=== PATIENT | male | born 1935 | race Caucasian/White ===

== ENCOUNTER 2019-01-28 21:31 | Inpatient (IN) | payer MEDICARE ==
[~2019-01-28] VITALS: Ht 175.3 cm; Wt 93.0 kg
--- NOTE | 2019-01-28 21:45 | NUR ---
Dr. Pedroza at bedside for MSE.
[2019-01-28] MEDS ORDERED: BENA20TA9 PO (21:57)
[2019-01-28] MEDS ORDERED: CLON0.1T PO (21:57)
[2019-01-28] MEDS ORDERED: METO50TA16 PO (21:57)
[2019-01-28] MEDS ORDERED: ATOR20TA PO (21:57)
[2019-01-28] MEDS ORDERED: IV NORMAL SALINE 500 ML BAG IV ONE (22:00)
[2019-01-28 22:04] LABS: BASOPHILS % (AUTO) 0.4 % (0.0-2.0); EOSINOPHILS % (AUTO) 0.3 % (0.0-7.0); HEMOGLOBIN 15.1 g/dL (12.5-16.3); LYMPHOCYTES # (AUTO) 1.7 K/uL (20.0-40.0); LYMPHOCYTES % (AUTO) 12.2 % (20.5-51.5); MEAN CORPUSCULAR HEMOGLOBIN 30.7 uug (23.8-33.4); MEAN CORPUSCULAR HGB CONC 34 g/dL (32.5-36.3); MEAN CORPUSCULAR VOLUME 91.6 fL (73.0-96.2); MONOCYTES # (AUTO) 1.5 K/uL (2.0-10.0); NEUTROPHILS # (AUTO) 10.3 K/uL (1.8-8.9); NEUTROPHILS % (AUTO) 76.1 % (38.5-71.5); PLATELET COUNT (AUTO) 291 K/uL (152-348); RED BLOOD CELL COUNT(AUTO) 4.92 MIL/uL (4.06-5.63); WHITE BLOOD COUNT (AUTO) 13.6 K/uL (3.6-10.2)
--- NOTE | 2019-01-28 22:06 | NUR ---
Pt out of ER for Xray/CT.
[2019-01-28 22:09] LABS: CARBON DIOXIDE 25 mmol/L (21-32); CHLORIDE 107 mmol/L (98-107); CREATININE 1.6 mg/dL (0.6-1.3); GLUCOSE 142 mg/dL (74-106); POTASSIUM 4.1 mmol/L (3.5-5.1); UREA NITROGEN, BLOOD 28 mg/dL (7-18)
[2019-01-28 22:14] LABS: ALANINE AMINOTRANSFERASE 41 U/L (16-63); ALKALINE PHOSPHATASE 99 U/L (50-136); ASPARTATE AMINOTRANSFERASE 26 U/L (15-37); BILIRUBIN,TOTAL 0.9 mg/dL (0.2-1.0); TOTAL PROTEIN, SERUM 6.9 g/dL (6.4-8.2)
--- NOTE | 2019-01-28 22:21 | NUR ---
Pt back to ER from CT.
--- NOTE | 2019-01-28 22:33 | NUR ---
Dr. Pedroza speaking with Dr. Ernst, Cardiology.
--- NOTE | 2019-01-28 23:06 | NUR ---
Called [facility] to page Lula Church NP.
--- NOTE | 2019-01-28 23:08 | NUR ---
Dr. Pedroza on panel call with Lula Church NP. Patient accepted for admission to [facility], diagnosis: near syncope.
[2019-01-28] MEDS ORDERED: ASPIRIN 325 MG TABLET PO ONE (23:15)
[2019-01-28] MEDS ORDERED: ASPIRIN 325 MG TABLET ONE (23:18)
--- NOTE | 2019-01-28 23:26 | NUR ---
Report given to [facility].
[2019-01-28] MEDS ORDERED: ACETAMINOPHEN 325 MG TABLET PO PRN (23:30)
[2019-01-28] MEDS ORDERED: MORPHINE SULFATE 2 MG/1 ML DISP.SYRIN IV PRN (23:30)
[2019-01-28] MEDS ORDERED: ONDANSETRON 4 MG/2 ML VIAL IV PRN (23:30)
[2019-01-28] MEDS ORDERED: MAGNESIUM HYDROXIDE 30 ML LIQUID UDC PO PRN (23:30)
[2019-01-28] MEDS ORDERED: Z GUARD REMEDY PASTE 57 GM TUBE TOP PRN (23:30)
[2019-01-28] MEDS ORDERED: CLONIDINE HCL 0.1 MG TABLET PO PRN (23:45)
[2019-01-29 00:19] VITALS: BP 111/69
[2019-01-29] MEDS: IV NS 1000 ML 1,000 ML IV PRN (00:47)
[2019-01-29 01:00] VITALS: BP_SYST 101; BP_SYST 114; BP_SYST 121; BP_DIAS 64; BP_DIAS 71; BP_DIAS 76
[2019-01-29 04:24] VITALS: BP 107/70
[2019-01-29 06:17] LABS: BASOPHILS % (AUTO) 0.4 % (0.0-2.0); EOSINOPHILS # (AUTO) 0.1 K/uL (0.0-0.7); HEMATOCRIT 38.3 % (36.7-47.1); HEMOGLOBIN 13.1 g/dL (12.5-16.3); LYMPHOCYTES # (AUTO) 1.3 K/uL (20.0-40.0); LYMPHOCYTES % (AUTO) 19.3 % (20.5-51.5); MEAN CORPUSCULAR HEMOGLOBIN 30.9 uug (23.8-33.4); MEAN CORPUSCULAR HGB CONC 34 g/dL (32.5-36.3); MEAN CORPUSCULAR VOLUME 90.1 fL (73.0-96.2); MONOCYTES # (AUTO) 0.7 K/uL (2.0-10.0); MONOCYTES % (AUTO) 11.6 % (0.0-11.0); NEUTROPHILS # (AUTO) 4.4 K/uL (1.8-8.9); NEUTROPHILS % (AUTO) 67.7 % (38.5-71.5); PLATELET COUNT (AUTO) 204 K/uL (152-348); RED BLOOD CELL COUNT(AUTO) 4.25 MIL/uL (4.06-5.63); WHITE BLOOD COUNT (AUTO) 6.5 K/uL (3.6-10.2)
[2019-01-29 06:33] LABS: CARBON DIOXIDE 27 mmol/L (21-32); CHLORIDE 110 mmol/L (98-107); CHOLESTEROL 114 mg/dL (<200); CREATININE 1.2 mg/dL (0.6-1.3); GLUCOSE 114 mg/dL (74-106); HDL CHOLESTEROL 42 mg/dL (40-60); PHOSPHOROUS 3.9 mg/dL (2.5-4.9); POTASSIUM 3.9 mmol/L (3.5-5.1); TRIGLYCERIDES 46 MG/DL (30-150); UREA NITROGEN, BLOOD 26 mg/dL (7-18)
[2019-01-29] MEDS: PANTOPRAZOLE SODIUM 40 MG TABLET.DR PO SCH (06:53)
--- NOTE | 2019-01-29 06:55 | NUR ---
Admitted to pt to room 308; VSS; Orthostatics done; started on IVF; troponin this Am is 0.128, referred to DR Alvarez; no new orders, aware cardiac consult and ASA already ordered; continue plan of care.
[2019-01-29 07:02] LABS: THYROID STIMULATING HORMONE 2.112 mIU/mL (0.358-3.740)
[2019-01-29] MEDS ORDERED: ASPIRIN 325 MG TABLET PO SCH (09:00)
[2019-01-29] MEDS: HEPARIN SODIUM,PORCINE 5,000 UNITS/ML VIAL SQ SCH ×2 (10:02→21:00)
[2019-01-29 11:38] VITALS: BP 127/74
[2019-01-29] MEDS: METOPROLOL TARTRATE 50 MG TABLET PO SCH ×2 (14:37→20:30)
[2019-01-29 15:27] LABS: *BILIRUBIN,URIN NEGATIVE (NEGATIVE); *BLOOD, URINE NEGATIVE (NEGATIVE); *CLARITY,URINE CLEAR (CLEAR); *COLOR,URINE YELLOW (YELLOW); *KETONES,URINE NEGATIVE (NEGATIVE); *UROBILINOGEN,URINE 0.2 E.U./dl (NORMAL); LEUKOCYTE ESTERASE ,URINE NEGATIVE (NEGATIVE); NITRITE, URINE NEGATIVE (NEGATIVE); PH,URINE 5.5 (5.0-8.0); UGLUCOSE NEGATIVE (NEGATIVE)
[2019-01-29 15:55] VITALS: BP 128/76
--- NOTE | 2019-01-29 19:50 | NUR ---
Received pt HOB elevated, awake, AxO x4. at bedside. Discussed and reviewed plan of care with pt, pt verbalizes understanding. Tele noted to be 1st degree block with left BBB with occasional PVCs. Pt O2 saturating 95% RA. Pt denies SOB, discomfort or pain. No acute distress noted. Assessment completed. Safety precautions in place, call light within reach. Will continue to monitor and carry out plan of care.
[2019-01-29 19:51] VITALS: BP 137/82
[2019-01-29] MEDS: ATORVASTATIN 20 MG TABLET PO SCH (20:30)
[2019-01-30] VITALS: BP 144/84
[2019-01-30] MEDS: IV NS 1000 ML 1,000 ML IV PRN ×2 (03:46→17:23)
[2019-01-30 03:52] VITALS: BP 142/80
[2019-01-30 06:27] LABS: BASOPHILS % (AUTO) 0.6 % (0.0-2.0); EOSINOPHILS # (AUTO) 0.1 K/uL (0.0-0.7); EOSINOPHILS % (AUTO) 2.1 % (0.0-7.0); HEMATOCRIT 38.6 % (36.7-47.1); HEMOGLOBIN 12.9 g/dL (12.5-16.3); LYMPHOCYTES # (AUTO) 1.2 K/uL (20.0-40.0); LYMPHOCYTES % (AUTO) 17.5 % (20.5-51.5); MEAN CORPUSCULAR HEMOGLOBIN 30.6 uug (23.8-33.4); MEAN CORPUSCULAR HGB CONC 34 g/dL (32.5-36.3); MEAN CORPUSCULAR VOLUME 91.4 fL (73.0-96.2); MONOCYTES # (AUTO) 0.7 K/uL (2.0-10.0); MONOCYTES % (AUTO) 10.8 % (0.0-11.0); NEUTROPHILS # (AUTO) 4.8 K/uL (1.8-8.9); PLATELET COUNT (AUTO) 208 K/uL (152-348); RED BLOOD CELL COUNT(AUTO) 4.22 MIL/uL (4.06-5.63); WHITE BLOOD COUNT (AUTO) 6.9 K/uL (3.6-10.2)
[2019-01-30] MEDS: PANTOPRAZOLE SODIUM 40 MG TABLET.DR PO SCH (06:29)
[2019-01-30 06:46] LABS: CARBON DIOXIDE 27 mmol/L (21-32); CHLORIDE 109 mmol/L (98-107); CREATININE 0.9 mg/dL (0.6-1.3); GLUCOSE 109 mg/dL (74-106); MAGNESIUM 1.9 mg/dL (1.8-2.4); PHOSPHOROUS 3.1 mg/dL (2.5-4.9); POTASSIUM 3.8 mmol/L (3.5-5.1); UREA NITROGEN, BLOOD 17 mg/dL (7-18)
--- NOTE | 2019-01-30 06:50 | NUR ---
Pt slept well in between care. Pt denies SOB, dizziness or pain. Maintenance IVF running NS at 75 mL/hr. No acute distress noted. All needs attended. Will continue to monitor.
[2019-01-30 07:59] VITALS: BP 151/87
[2019-01-30] MEDS: ASPIRIN 81 MG TAB.CHEW PO SCH (08:45)
[2019-01-30] MEDS: METOPROLOL TARTRATE 50 MG TABLET PO SCH ×2 (08:45→20:44)
[2019-01-30] MEDS: HEPARIN SODIUM,PORCINE 5,000 UNITS/ML VIAL SQ SCH ×2 (08:47→20:45)
[2019-01-30] MEDS: BENAZEPRIL HCL 10 MG TABLET PO SCH (08:52)
[2019-01-30 11:32] VITALS: BP 147/77
[2019-01-30 16:22] VITALS: BP 154/59
--- NOTE | 2019-01-30 19:35 | NUR ---
Received patient awake in bed, alert and oriented x 4 and able to ambulate. Not in any form of acute distress. With IV access on both arms, patent and intact. No complaints at the moment. Will monitor for recurrence of dizziness. Bed in low position, locked, side rails up x 2 for safety. Call light within reach. Noise and lights subdued.
[2019-01-30 20:05] VITALS: BP 161/85
[2019-01-30] MEDS: ATORVASTATIN 20 MG TABLET PO SCH (20:44)
--- NOTE | 2019-01-30 21:00 | NUR ---
Noted plans for a thallium stress test tomorrow morning, obtained informed consent. Instructed patient to remain NPO after midnight to which patient verbalized understanding. Noted patient's son , James present at bedside and aware of the planned procedure.
[2019-01-31 00:45] VITALS: BP 149/76
[2019-01-31 04:00] VITALS: BP 165/88
--- NOTE | 2019-01-31 05:50 | NUR ---
Patient slept well throughout the night. Maintained NPO after midnight in preparation for the Thallium Stress Test this morning. No complaints made. Still with ongoing IV fluid infusing well. Attended all needs. Ensured safety and comfort.
[2019-01-31 05:56] LABS: BASOPHILS % (AUTO) 0.3 % (0.0-2.0); EOSINOPHILS # (AUTO) 0.1 K/uL (0.0-0.7); EOSINOPHILS % (AUTO) 1.7 % (0.0-7.0); HEMOGLOBIN 13.4 g/dL (12.5-16.3); LYMPHOCYTES % (AUTO) 16.1 % (20.5-51.5); MEAN CORPUSCULAR HEMOGLOBIN 30.9 uug (23.8-33.4); MEAN CORPUSCULAR HGB CONC 34 g/dL (32.5-36.3); MEAN CORPUSCULAR VOLUME 90.1 fL (73.0-96.2); MONOCYTES # (AUTO) 0.7 K/uL (2.0-10.0); MONOCYTES % (AUTO) 11.6 % (0.0-11.0); NEUTROPHILS # (AUTO) 4.5 K/uL (1.8-8.9); NEUTROPHILS % (AUTO) 70.3 % (38.5-71.5); PLATELET COUNT (AUTO) 205 K/uL (152-348); RED BLOOD CELL COUNT(AUTO) 4.33 MIL/uL (4.06-5.63); WHITE BLOOD COUNT (AUTO) 6.4 K/uL (3.6-10.2)
[2019-01-31 06:12] LABS: CARBON DIOXIDE 27 mmol/L (21-32); CHLORIDE 108 mmol/L (98-107); CREATININE 1.1 mg/dL (0.6-1.3); GLUCOSE 107 mg/dL (74-106); MAGNESIUM 1.8 mg/dL (1.8-2.4); PHOSPHOROUS 3.2 mg/dL (2.5-4.9); POTASSIUM 3.9 mmol/L (3.5-5.1); UREA NITROGEN, BLOOD 14 mg/dL (7-18)
[2019-01-31] MEDS: PANTOPRAZOLE SODIUM 40 MG TABLET.DR PO SCH (06:24)
[2019-01-31] MEDS: IV NS 1000 ML 1,000 ML IV PRN (06:37)
[2019-01-31] MEDS ORDERED: REGADENOSON 0.4 MG/5 ML PREFILLED SYR IV ONE (07:30)
--- NOTE | 2019-01-31 08:00 | NUR ---
Pt is in no acute distress. NPO status for lexiscan test with volunteer services supervisor. Call light is within reach.
[2019-01-31] MEDS ORDERED: HEPARIN SODIUM,PORCINE 5,000 UNITS/ML VIAL SQ SCH (09:00)
[2019-01-31] MEDS: ASPIRIN 81 MG TAB.CHEW PO SCH (10:27)
[2019-01-31] MEDS: BENAZEPRIL HCL 10 MG TABLET PO SCH (10:29)
[2019-01-31] MEDS: METOPROLOL TARTRATE 50 MG TABLET PO SCH (10:29)
[2019-01-31 11:22] VITALS: BP 151/81
[2019-01-31 15:15] VITALS: BP 156/87
--- NOTE | 2019-01-31 16:00 | NUR ---
Discharge instructions given to patient. pt verbalized understanding. Pt is to f/u with child care associate teacher and primary doctor within 1 week. Discussed lifestyle changes of decreasing alcohol intake and resources ie: AA meetings. Pt receptive of suggestions. Pt to fu with pnm and flu vaccine with primary. IV d/c pt ambulate with good gait.
== END 2019-01-31 19:00 | disposition home or self-care (01) | DRG 640 ==
LOC: ER 21:34 → TELE-TD3 23:22 → TELE3 01-30 15:15
PROVIDERS: ADMIT Registered Nurse; ATTEND Registered Nurse
DX: E86.0 Dehydration (principal); I21.4 Non-ST elevation (NSTEMI) myocardial infarction; N17.0 Acute kidney failure with tubular necrosis; R55 Syncope and collapse; D72.829 Elevated white blood cell count, unspecified; N40.0 Benign prostatic hyperplasia without lower urinary tract symptoms; R16.0 Hepatomegaly, not elsewhere classified; F10.10 Alcohol abuse, uncomplicated; Y90.9 Presence of alcohol in blood, level not specified; I45.10 Unspecified right bundle-branch block; I44.0 Atrioventricular block, first degree; I12.9 Hypertensive chronic kidney disease with stage 1 through stage 4 chronic kidney disease, or unspecified chronic kidney disease; N18.9 Chronic kidney disease, unspecified; E78.5 Hyperlipidemia, unspecified; E78.00 Pure hypercholesterolemia, unspecified; E66.9 Obesity, unspecified; Z68.30 Body mass index [BMI] 30.0-30.9, adult; Z79.899 Other long term (current) drug therapy
CPT/HCPCS: 36415; 70030-TC; 70450; 71045; 78452; 83735; 84100; 84443; 85025; 85730; 93005; 93307; 93880; A4663; A9502; G0378; J1644; J2785; J7030